=== PATIENT | female | born 1980 | race Caucasian/White ===

== ENCOUNTER 2018-04-02 11:01 | Day surgery (SDC) | payer BC ==
[2018-04-01 11:16] LABS: BASOPHILS % (AUTO) 0.3 % (0-1); EOSINOPHILS # (AUTO) 0.1 X10'3 (0-0.9); EOSINOPHILS % (AUTO) 1.2 % (0-6); LYMPHOCYTES # (AUTO) 1.8 X10'3 (1.1-4.8); LYMPHOCYTES % (AUTO) 28.6 % (21-51); MEAN CORPUSCULAR HEMOGLOBIN 28.6 PG (27.0-31.0); MEAN CORPUSCULAR HGB CONC 32.3 % (33.0-36.5); MEAN CORPUSCULAR VOLUME 88.6 FL (78-98); MEAN PLATELET VOLUME 8.8 FL (7.4-10.4); MONOCYTES # (AUTO) 0.4 X10'3 (0-0.9); MONOCYTES % (AUTO) 6.1 % (2-12); NEUTROPHILS % (AUTO) 63.8 % (42-75); PRE OP HEMATOCRIT 46.8 % (35.0-45.0); PRE OP HEMOGLOBIN 15.1 g/dL (12.0-16.0); PRE OP PLATELET COUNT 273 X10'3 (140-440); RED BLOOD COUNT 5.28 X10'6 (4.20-5.60); RED CELL DISTRIBUTION WIDTH 12.7 % (11.5-14.5)
[2018-04-01 11:33] LABS: BLOOD UREA NITROGEN 21 MG/DL (7-18); BUN/CREATININE RATIO 24.7 (6.6-38.0); CALCIUM 9.2 MG/DL (8.5-10.1); CHLORIDE 102 MMOL/L (99-107); CREATININE 0.85 MG/DL (0.40-0.90); PRE OP ANION GAP 12 (8-16); PRE OP BILIRUB, TOTAL 0.3 MG/DL (0.0-1.0); PRE OP GLUCOSE 98 MG/DL (70-104); PRE OP SODIUM 139 MMOL/L (135-145); TOTAL CARBON DIOXIDE 25.3 MMOL/L (24-32); TOTAL PROTEIN 7.9 G/DL (6.4-8.2); eGFR 74 ML/MIN
[2018-04-01 11:34] LABS: ALBUMIN 4.1 G/DL (3.4-5.0); ALBUMIN/GLOBULIN RATIO 1.1 (1.1-1.5); ALKALINE PHOSPHATASE 96 IU/L (46-116); PRE OP ALT 53 U/L (30-65); PRE OP AST 24 U/L (10-37)
[2018-04-02] VITALS (7 sets, daily range): BP systolic 115–137; BP diastolic 72–91
[~2018-04-02] VITALS: Ht 172.7 cm; Wt 130.2 kg
[~2018-04-02 11:01] MED LIST: ANAS1TAB49 PO; CALC-995; CHOL100044 PO; DENO60DI; ESZO3TAB32 PO; [UNRECOGNIZED DRUG - OTHER]; cefazolin/dext.iso 2gm/50ml 50 ML IV ONE; famotidine 20mg tablet PO ONE; ringers solution, lacted 1,000 ML IV SCH
[2018-04-02] MEDS ORDERED: BUPIVAcaine/PF 2.5mg/ml (0.25%) 10ml vial ONE (11:36)
[2018-04-02] MEDS ORDERED: scopolamine 1.5mg patch.TD72 TD ONE (11:55)
[2018-04-02] MEDS ORDERED: sevoflurane 250ml liquid IH ONE (11:56)
[2018-04-02] MEDS ORDERED: fentaNYL/PF 50MCG/1 ML 2ML syringe ONE (12:04)
[2018-04-02] MEDS ORDERED: midazolam 2 mg/2 ml injection ONE (12:05)
[2018-04-02] MEDS ORDERED: propofol inj 20 ML IV ONE (12:08)
[2018-04-02] MEDS ORDERED: ondansetron/PF 4mg/2ml inj ONE (12:36)
[2018-04-02] MEDS ORDERED: dexamethasone sod phosphate 4mg/ml inj. ONE (12:36)
[2018-04-02] MEDS ORDERED: ringers solution, lacted 1,000 ML IV SCH (12:42)
[2018-04-02] MEDS ORDERED: ondansetron/PF 4mg/2ml inj IV PRN (12:45)
[2018-04-02] MEDS ORDERED: proCHLORperazine 10 MG/2 ml inj IV PRN (12:45)
[2018-04-02] MEDS ORDERED: morphine 4 MG/ML inj SYRINge IV PRN ×2 (12:45)
[2018-04-02] MEDS ORDERED: meperidine/PF 25mg/ml syringe IV PRN ×3 (12:45)
--- NOTE | 2018-04-02 12:58 | NUR ---
Received from OR via [facility] , accompanied by Anesthesiologist VIK and report given by Anesthesiolgist. PATIENT WITH 20G PIV IN RIGHT UE RUNNING LR AT 100. PAIN OF 4 TO LEFT INDEX FINGER. OSEAS WRAP AND SPLINT INTACT WITH NO DRAINAGE PRESENT. + SENSATION AT THIS TIME. 10L MASK ON WITH 100% SATURATIONS. Addendum: 04/02/18 at 1313 by Bandar Noriega RN, RN Amended: Links added.
== END 2018-04-02 13:48 | disposition home or self-care (01) ==
LOC: PAS 11:01
PROVIDERS: ATTEND Orthopaedic Surgery Hand Surgery
DX: S66.121A Laceration of flexor muscle, fascia and tendon of left index finger at wrist and hand level, initial encounter (principal); S64.491A Injury of digital nerve of left index finger, initial encounter; S64.22XA Injury of radial nerve at wrist and hand level of left arm, initial encounter; E66.01 Morbid (severe) obesity due to excess calories; M19.90 Unspecified osteoarthritis, unspecified site; F32.9 Major depressive disorder, single episode, unspecified; Z88.1 Allergy status to other antibiotic agents; Z68.41 Body mass index [BMI] 40.0-44.9, adult; Z85.3 Personal history of malignant neoplasm of breast; Z90.13 Acquired absence of bilateral breasts and nipples; Z92.21 Personal history of antineoplastic chemotherapy; Z79.891 Long term (current) use of opiate analgesic; Z79.899 Other long term (current) drug therapy; Z98.890 Other specified postprocedural states; X78.8XXA Intentional self-harm by other sharp object, initial encounter; Y93.89 Activity, other specified; Y92.89 Other specified places as the place of occurrence of the external cause; Y99.8 Other external cause status; Z82.49 Family history of ischemic heart disease and other diseases of the circulatory system; Z83.3 Family history of diabetes mellitus; Z81.8 Family history of other mental and behavioral disorders; Z80.9 Family history of malignant neoplasm, unspecified; Z83.6 Family history of other diseases of the respiratory system
CPT/HCPCS: 26356; 36415; 64704; 80053; 85025; A6222; A6449; J0690; J1100; J2250; J2405; J2704; J3010; J3490; A7000; J7120

== ENCOUNTER 2023-06-10 07:56 | Outpatient (CLI) | payer BC ==
[~2023-06-10] VITALS: Ht 172.7 cm; Wt 127.0 kg
[2023-06-10] VITALS (17 sets, daily range): BP systolic 101–151; BP diastolic 64–92; PULSE 76–108; RESP 14–16; O2SAT 100
[~2023-06-10 07:56] MED LIST changes: -cefazolin/dext.iso 2gm/50ml 50 ML IV ONE; -famotidine 20mg tablet PO ONE; -ringers solution, lacted 1,000 ML IV SCH
[2023-06-10] MEDS ORDERED: nitroGLYCERIN 0.4mg SUBLingual tab SL PRN (08:40)
[2023-06-10] MEDS: aminophylline 250mg/10ml inj. IV PRN (10:19)
[2023-06-10] MEDS: regadenoson 0.4mg/5ml syringe IV ONE (10:19)
== END 2023-06-10 23:59 | disposition home or self-care (01) ==
LOC: RAD 07:56
PROVIDERS: ATTEND Internal Medicine Interventional Cardiology
DX: I50.22 Chronic systolic (congestive) heart failure (principal)
CPT/HCPCS: 78452; 93017; A9500; J0280; J2785

== ENCOUNTER 2023-11-05 13:25 | Outpatient (CLI) | payer OTHER | END 2023-11-05 23:59 | disposition home or self-care (01) | LOC: MRI 13:25 | PROVIDERS: ATTEND Student in an Organized Health Care Education/Training Program | DX: S93.492A Sprain of other ligament of left ankle, initial encounter (principal); M25.572 Pain in left ankle and joints of left foot; T14.8XXA Other injury of unspecified body region, initial encounter; M25.472 Effusion, left ankle; X58.XXXA Exposure to other specified factors, initial encounter; Y93.89 Activity, other specified; Y92.89 Other specified places as the place of occurrence of the external cause; Y99.8 Other external cause status | CPT/HCPCS: 73721 ==

== ENCOUNTER 2024-01-28 10:30 | Day surgery (SDC) | payer OTHER ==
[2024-01-21 11:17] LABS: BASOPHILS % (AUTO) 0.7 % (0-1); BILIRUBIN,URINE NEGATIVE (Neg); CLARITY,URINE CLEAR (Clear); COLOR,URINE YELLOW (Yellow); EOSINOPHILS # (AUTO) 0.1 X10'3 (0-0.9); EOSINOPHILS % (AUTO) 0.9 % (0-6); GLUCOSE, URINE >=1000 mg/dl (Neg); KETONES,URINE NEGATIVE (Neg); LEUKOCYTE ESTERASE ,URINE NEGATIVE (Neg); LYMPHOCYTES % (AUTO) 29.5 % (21-51); MEAN CORPUSCULAR HEMOGLOBIN 29.4 PG (27.0-31.0); MEAN CORPUSCULAR HGB CONC 32.6 g/dL (33.0-36.5); MEAN PLATELET VOLUME 8.8 FL (7.4-10.4); MONOCYTES # (AUTO) 0.3 X10'3 (0-0.9); MONOCYTES % (AUTO) 5.1 % (2-12); NEUTROPHILS # (AUTO) 4.2 X10'3 (1.8-7.7); NEUTROPHILS % (AUTO) 63.8 % (42-75); NITRITES, URINE NEGATIVE (Neg); OCCULT BLOOD,URINE NEGATIVE (Neg); PRE OP HEMATOCRIT 44.3 % (35.0-45.0); PRE OP HEMOGLOBIN 14.4 g/dL (12.0-16.0); PRE OP PLATELET COUNT 226 X10'3 (140-440); PRE OP WHITE BLOOD COUNT 6.6 10'3 (4.8-10.8); PROTEIN,URINE NEGATIVE (Neg); RED BLOOD COUNT 4.92 X10'6 (4.20-5.60); RED CELL DISTRIBUTION WIDTH 13.8 % (11.5-14.5); UROBILINOGEN,URINE 0.2 E.U/dL (0.2-1.0)
[2024-01-21 11:26] LABS: MUCUS STRANDS FEW /LPF (Neg); SQUAMOUS EPITHELIAL CELL,UR MODERATE /LPF (FEW); UA COLLECTION TYPE NON-SPECIFIED
[2024-01-21 11:27] LABS: BACTERIA,URINE 1+ /HPF (Neg); RBC,URINE 0-2 /HPF (0-2)
[2024-01-21 11:37] LABS: ALBUMIN/GLOBULIN RATIO 1.2 (1.1-1.5); ALKALINE PHOSPHATASE 100 IU/L (46-116); BLOOD UREA NITROGEN 13 MG/DL (7-18); BUN/CREATININE RATIO 14.8 (10.0-20.0); CALCIUM 9.2 MG/DL (8.5-10.1); CHLORIDE 103 MMOL/L (99-107); CREATININE 0.88 MG/DL (0.40-0.90); PRE OP ALT 27 U/L (30-65); PRE OP ANION GAP 9 (8-16); PRE OP AST 14 U/L (10-37); PRE OP BILIRUB, TOTAL 0.6 MG/DL (0.0-1.0); PRE OP GLUCOSE 100 MG/DL (70-104); PRE OP POTASSIUM 3.5 MMOL/L (3.4-5.1); PRE OP SODIUM 140 MMOL/L (135-145); TOTAL PROTEIN 7.4 G/DL (6.4-8.2); eGFR 69 ML/MIN
[~2024-01-28] VITALS: Ht 172.7 cm; Wt 122.0 kg
[2024-01-28] VITALS (14 sets, daily range): BP systolic 92–116; BP diastolic 47–71; PULSE 64–91; RESP 12–24; TEMP 97.4; O2SAT 90–97
[2024-01-28] MEDS: DOCUMENT DATE & TIME OF BETA-BLOCKER PO ONE (08:00)
[~2024-01-28 10:30] MED LIST changes: -ANAS1TAB49 PO; -CALC-995; +CALC-995 PO; +CARV-50 PO; -DENO60DI; +EMPA10TA PO; -ESZO3TAB32 PO; +FURO-150 PO; +SACU1TAB7 PO; +SPIR25TA5 PO; -[UNRECOGNIZED DRUG - OTHER]
[2024-01-28] MEDS ORDERED: bacitracin 15gm ointment TP ONE ×2 (10:55→12:55)
[2024-01-28] MEDS ORDERED: BUPIVAcaine 2.5mg/ml inj 50ml vial (contains preservative) ONE ×2 (10:55→12:55)
[2024-01-28] MEDS: Cefazolin 3 GM/100ML NS IVPB 100 ML IV ONE (12:41)
[2024-01-28] MEDS: famotidine 20mg tablet PO ONE (12:41)
[2024-01-28] MEDS: ringers solution, lacted 1,000 ML IV SCH (12:42)
[2024-01-28] MEDS ORDERED: MIDAZolam 1 MG/ML 5ML VIAL ONE (13:10)
[2024-01-28] MEDS ORDERED: fentaNYL/PF 50MCG/1 ML 2ML syringe ONE (13:10)
[2024-01-28] MEDS ORDERED: sevoflurane 250ml liquid IH ONE (13:12)
[2024-01-28] MEDS ORDERED: BUPIVAcaine/PF 7.5mg/ml (0.75%) 10ml vial ONE (13:13)
[2024-01-28] MEDS ORDERED: ROPIVAcaine 0.5% (5mg/ml) 30ml vial ONE (13:13)
[2024-01-28] MEDS ORDERED: LIDOcaine 1%/PF 5ML 10 MG/ML VIAL ONE (13:53)
[2024-01-28] MEDS ORDERED: propofol inj 20 ML IV ONE (13:53)
[2024-01-28] MEDS ORDERED: acetaminophen 1,000mg/100ml IV 100 ML IV ONE (14:34)
[2024-01-28] MEDS ORDERED: meperidine/PF 25mg/ml syringe IV PRN ×2 (14:40)
[2024-01-28] MEDS ORDERED: labetalol 20mg/4ml (5mg/ml) syringe IV PRN (14:40)
[2024-01-28] MEDS ORDERED: proCHLORperazine 10 MG/2 ml inj IV PRN (14:40)
[2024-01-28] MEDS ORDERED: ringers solution, lacted 1,000 ML IV SCH (14:40)
[2024-01-28] MEDS ORDERED: enalaprilat dihydrate 2.5mg/2ml vial IV PRN (14:40)
[2024-01-28] MEDS ORDERED: meperidine/PF 50mg/ml syringe ONE (15:44)
[2024-01-28] MEDS: meperidine/PF 25mg/ml syringe IV PRN (17:16)
[2024-01-28] MEDS: ondansetron/PF 4mg/2ml inj IV PRN (17:54)
[2024-01-28] MEDS: HYDROcodone/acetaminophen 10/325mg tab PO ONE (17:54)
== END 2024-01-28 18:32 | disposition home or self-care (01) ==
LOC: PAS 10:30
PROVIDERS: ATTEND Podiatrist Foot & Ankle Surgery
DX: S93.432A Sprain of tibiofibular ligament of left ankle, initial encounter (principal); M25.372 Other instability, left ankle; M19.072 Primary osteoarthritis, left ankle and foot; M25.572 Pain in left ankle and joints of left foot; G89.18 Other acute postprocedural pain; I10 Essential (primary) hypertension; E66.01 Morbid (severe) obesity due to excess calories; I42.9 Cardiomyopathy, unspecified; F32.A Depression, unspecified; Z85.3 Personal history of malignant neoplasm of breast; Z79.82 Long term (current) use of aspirin; Z79.899 Other long term (current) drug therapy; Z79.891 Long term (current) use of opiate analgesic; Z90.13 Acquired absence of bilateral breasts and nipples; Z90.710 Acquired absence of both cervix and uterus; Z96.651 Presence of right artificial knee joint; Z98.890 Other specified postprocedural states; Z68.41 Body mass index [BMI] 40.0-44.9, adult; Z88.1 Allergy status to other antibiotic agents; Z88.5 Allergy status to narcotic agent; Z82.5 Family history of asthma and other chronic lower respiratory diseases; X58.XXXA Exposure to other specified factors, initial encounter; Y93.89 Activity, other specified; Y92.89 Other specified places as the place of occurrence of the external cause; Y99.8 Other external cause status
CPT/HCPCS: 27698; 27829; 29999; 36415; 64445; 64447; 73600; 80053; 81001; 82948; 85025; 87088; 93005; A6222; C1713; J0131; J0690; J1100; J2175; J2250; J2405; J2704; J2795; J3010; J3490; J7050; J7120; Z7506; Z7508; Z7512; 76000; A4618; A6449; A7000

== ENCOUNTER 2024-04-19 08:39 | Outpatient (CLI) | payer OTHER ==
[~2024-04-19 08:39] MED LIST changes: +ALEN70TA80 PO; +ESZO3TAB17 PO; +OSC500T PO
== END 2024-04-19 23:59 | disposition home or self-care (01) ==
LOC: MRI02 08:39
PROVIDERS: ATTEND Student in an Organized Health Care Education/Training Program
DX: M25.461 Effusion, right knee (principal); M25.561 Pain in right knee
CPT/HCPCS: 73721

== ENCOUNTER 2024-08-31 05:35 | Inpatient (IN) | payer OTHER ==
[2024-08-24 10:17] LABS: BILIRUBIN,URINE NEGATIVE (Neg); CLARITY,URINE CLEAR (Clear); COLOR,URINE YELLOW (Yellow); GLUCOSE, URINE >=1000 mg/dl (Neg); KETONES,URINE NEGATIVE (Neg); LEUKOCYTE ESTERASE ,URINE NEGATIVE (Neg); OCCULT BLOOD,URINE TRACE-INTACT (Neg); PROTEIN,URINE NEGATIVE (Neg); UROBILINOGEN,URINE 0.2 E.U/dL (0.2-1.0)
[2024-08-24 10:18] LABS: UA COLLECTION TYPE NON-SPECIFIED
[2024-08-24 10:19] LABS: BASOPHILS % (AUTO) 0.7 % (0-1); EOSINOPHILS % (AUTO) 0.8 % (0-6); LYMPHOCYTES # (AUTO) 1.7 X10'3 (1.1-4.8); LYMPHOCYTES % (AUTO) 31.8 % (21-51); MEAN CORPUSCULAR HEMOGLOBIN 29.5 PG (27.0-31.0); MEAN CORPUSCULAR HGB CONC 33.5 g/dL (33.0-36.5); MEAN CORPUSCULAR VOLUME 88.2 FL (78-98); MEAN PLATELET VOLUME 8.8 FL (7.4-10.4); MONOCYTES # (AUTO) 0.4 X10'3 (0-0.9); MONOCYTES % (AUTO) 7.1 % (2-12); NEUTROPHILS # (AUTO) 3.2 X10'3 (1.8-7.7); NEUTROPHILS % (AUTO) 59.6 % (42-75); PRE OP HEMATOCRIT 42.5 % (35.0-45.0); PRE OP HEMOGLOBIN 14.2 g/dL (12.0-16.0); PRE OP PLATELET COUNT 256 X10'3 (140-440); PRE OP WHITE BLOOD COUNT 5.4 10'3 (4.8-10.8); RED BLOOD COUNT 4.82 X10'6 (4.20-5.60); RED CELL DISTRIBUTION WIDTH 13.4 % (11.5-14.5)
[2024-08-24 10:21] LABS: NITRITES, URINE NEGATIVE (Neg)
[2024-08-24 10:32] LABS: MUCUS STRANDS FEW /LPF (Neg)
[2024-08-24 10:33] LABS: SQUAMOUS EPITHELIAL CELL,UR MODERATE /LPF (FEW)
[2024-08-24 10:35] LABS: BACTERIA,URINE FEW /HPF (Neg); WBC,URINE 0-4 /HPF (0-4)
[2024-08-24 10:39] LABS: ALBUMIN 3.8 G/DL (3.4-5.0); ALBUMIN/GLOBULIN RATIO 1.1 (1.1-1.5); ALKALINE PHOSPHATASE 112 IU/L (46-116); BLOOD UREA NITROGEN 16 MG/DL (7-18); CHLORIDE 105 MMOL/L (99-107); PRE OP ALT 45 U/L (30-65); PRE OP ANION GAP 10 (8-16); PRE OP AST 21 U/L (10-37); PRE OP BILIRUB, TOTAL 0.4 MG/DL (0.0-1.0); PRE OP GLUCOSE 113 MG/DL (70-104); PRE OP SODIUM 141 MMOL/L (135-145); TOTAL CARBON DIOXIDE 26.1 MMOL/L (24-32); TOTAL PROTEIN 7.3 G/DL (6.4-8.2); eGFR 77 ML/MIN
[2024-08-31] VITALS (18 sets, daily range): BP systolic 93–112; BP diastolic 44–72; PULSE 60–77; RESP 11–22; TEMP 97.2–98.4; O2SAT 92–98
[~2024-08-31] VITALS: Ht 172.7 cm; Wt 120.0 kg
[2024-08-31] MEDS: ringers solution, lacted 1,000 ML IV SCH (05:30)
[~2024-08-31 05:35] MED LIST changes: -ALEN70TA80 PO; -CALC-995 PO; -CARV-50 PO; +CARV25TA2 PO; -CHOL100044 PO; -ESZO3TAB17 PO; -OSC500T PO; +SACU1TAB4 PO; -SACU1TAB7 PO
[2024-08-31] MEDS: DOCUMENT DATE & TIME OF BETA-BLOCKER PO ONE (05:52)
[2024-08-31] MEDS: gentamicin inj 160 MG in normal saline 100ml IV soln 100 ML IV ONE (05:53)
[2024-08-31] MEDS: ceFAZolin 2gm/dext,iso 50mL 50 ML IV ONE (05:53)
[2024-08-31] MEDS: famotidine 20mg tablet PO ONE (06:31)
[2024-08-31] MEDS: CEFAZOLIN 3GM/DEXTROSE 150mL 150 ML IV SCH (06:31)
[2024-08-31] MEDS: VANCOMYCIN/H2O 1.5g/300mL PB 300 ML IV ONE (06:31)
[2024-08-31] MEDS ORDERED: bacitracin 15gm ointment TP ONE (06:40)
[2024-08-31] MEDS ORDERED: BUPIVAcaine 2.5mg/ml inj 50ml vial (contains preservative) ONE (06:40)
[2024-08-31] MEDS ORDERED: fentaNYL/PF 50MCG/1 ML 2ML syringe ONE (07:12)
[2024-08-31] MEDS ORDERED: MIDAZolam 1 MG/ML 5ML VIAL ONE (07:12)
[2024-08-31] MEDS ORDERED: cloNIDine hcl/PF 100mcg/ml inj ONE (07:13)
[2024-08-31] MEDS ORDERED: sevoflurane 250ml liquid IH ONE (07:15)
[2024-08-31] MEDS ORDERED: ondansetron/PF 4mg/2ml inj ONE (07:56)
[2024-08-31] MEDS ORDERED: propofol inj 20 ML IV ONE ×2 (07:56→08:00)
[2024-08-31] MEDS ORDERED: ROPIVAcaine 0.5% (5mg/ml) 30ml vial ONE (07:56)
[2024-08-31] MEDS ORDERED: LIDOcaine 1%/PF 5ML 10 MG/ML VIAL ONE (07:56)
[2024-08-31] MEDS ORDERED: BUPIVAcaine/PF 7.5mg/ml (0.75%) 10ml vial ONE (07:56)
[2024-08-31] MEDS ORDERED: 0.9 % SODIUM CHLORIDE 10 ML VIAL ONE (07:56)
[2024-08-31] MEDS ORDERED: dexamethasone sod phosphate 4mg/ml inj. ONE (07:56)
[2024-08-31] MEDS: BUPIVAcaine/PF 2.5 mg/ml (0.25%) 30ml vial IJ ONE (08:37)
[2024-08-31] MEDS ORDERED: labetalol 20mg/4ml (5mg/ml) syringe IV PRN (08:50)
[2024-08-31] MEDS ORDERED: proCHLORperazine 10 MG/2 ml inj IV PRN (08:50)
[2024-08-31] MEDS ORDERED: enalaprilat 1.25mg/ml 2ml vial IV PRN (08:50)
[2024-08-31] MEDS ORDERED: ondansetron/PF 4mg/2ml inj IV PRN (08:50)
[2024-08-31] MEDS ORDERED: meperidine/PF 25mg/ml syringe IV PRN ×3 (08:50)
[2024-08-31] MEDS ORDERED: ringers solution, lacted 1,000 ML IV SCH (08:50)
--- NOTE | 2024-08-31 08:52 | ANESTHESIA RECORDS ---
Nerve Block Providers to CC ~ Diagnosis: Nerve Block requested by: TRISH CALLAHAN DPRomana Neuraxial/Peripheral Nerve Block requested for Post-operative analgesia by Physician above DIAGNOSIS: Post-operative pain. (Body Area) Shoulder: [ ] Arm: [ ] Hand: [ ] Hip: [ ] Knee: [ ] Ankle: [____Right ] Foot: [ Right ] Leg: [ ] Abdomen: [ ] Other: [ ] Post-operative pain expected to be/is inadequately managed by oral or IV medicines. Regional anesthetic expected to facilitate rehabilitation and/or discharge from facility. Other:[____ ] Procedure Performed: Femoral / Saphenous: Right Popliteal Lateral: Right Time out Done?: Yes Time of Time out: 07:22 Procedure Details: PROCEDURE DETAILS: Risks, benefits and alternatives explained Informed consent obtained, and patient wishes to proceed Conscious sedation with indicated monitors Patient positioned, pertinent anatomy defined, sterile technique used Needle used: [ ] 3 1/8 inch Stimuplex Ultra 22ga [x ] 4 inch Stimuplex Ultra 20ga [ ] 6 inch Stimuplex Ultra 20ga [ ] 6 inch, Quikbloc over the needle catheter set 20ga [ ] 4 inch Quikbloc over the needle catheter set 20ga [ ]Other: [ ] Loss of twitch @ [ 0.5 ]mA [x ] Single Injection [ ] Catheter Ultrasound Guidance Used: [x ] Yes [ ] No Attempts:[ once ] Medicines injected: [x ]Clonidine Amt:[ 80 mcgs ] [x ]Dexamethasone Amt:[___5 mgs ] [x ]Ropivacaine Amt:[ 0.5% 30 cc ] [ x ]Bupivacaine Amt:[ 0.25% 20 cc ] [ ]Lidocaine Amt:[ ] [ ]Exparel 1.33%:[ ] [ ]Epinephrine Amt[ ] [ ]Other: [ ] Intermittent aspiration during local anesthetic administration No symptoms of intraneural or intravenous injection Patient tolerated procedure well Comments Right Politeal fossa Block Pt in Lt lateral position with Left Leg flexed at 90 Degrees. Lateral approach. Ultrasound probe placed back of thigh 2 inches above the knee joint. Easy visualization of the Sciatic nerve. 1% xylocaine local anesthetic. Easy visualization of Spreading of local anesthetic anterior and posterior to the Sciatic nerve sub paraneurally inside sciatic nerve sheath. Meaningful conversation t throughout. No Pain or discomfort during injection. Rt Adductor Canal blk Procedure done before surgery under General anesthesia. Pt supine with Rt leg rotated to Rt slightly. Easy visualization of Adductor Canal with ultra sound anterolateral to Femoral artery at the junction of upper and middle third of thigh. Able to see the tip of the needle and injected local anesthetic with the ultrasound. JJ ROJAS MD Aug 31, 2024 08:52
[2024-08-31] MEDS: bacitracin 15gm ointment TP ONE (09:58)
[2024-08-31] MEDS ORDERED: magnesium Cl slow-release 64mg tablet PO PRN (10:10)
[2024-08-31] MEDS ORDERED: magnesium sulf-water 2g/50mL 50 ML IV PRN (10:10)
[2024-08-31] MEDS ORDERED: magnesium hydroxide 30ml (MOM) UD suspension PO PRN (10:10)
[2024-08-31] MEDS ORDERED: potassium Cl 20 mEq SR tablet PO PRN ×2 (10:10)
[2024-08-31] MEDS ORDERED: morphine 2 MG/ML inj. syringe IV PRN ×2 (10:10)
[2024-08-31] MEDS ORDERED: acetaminophen 325mg tablet PO PRN (10:10)
[2024-08-31] MEDS ORDERED: magnesium sulf-water 4G/100mL 100 ML IV PRN (10:10)
[2024-08-31] MEDS ORDERED: potassium Cl 40MEQ/1/2NS 520ml 520 ML IV PRN (10:10)
[2024-08-31] MEDS ORDERED: mag hydrox/Alum hydrox/simeth 30ml oral suspension PO PRN (10:10)
[2024-08-31] MEDS: HYDROmorphone/PF 0.2 MG/ML SYRINGE IV PRN (13:17)
[2024-08-31] MEDS ORDERED: acetaminophen 1000 MG/100ml vial IV ONE (15:00)
[2024-08-31] MEDS: HYDROcodone/acetaminophen 10/325mg tab PO PRN (16:02)
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
[2024-08-31] MEDS: VANCOMYCIN/H2O 1.5g/300mL PB 300 ML IV SCH (20:13)
[2024-08-31] MEDS: docusate sod 100mg capsule PO SCH (20:13)
[2024-08-31] MEDS: carVEDilol 12.5mg tablet PO SCH (20:13)
[2024-09-01] VITALS (8 sets, daily range): BP systolic 94–117; BP diastolic 44–61; PULSE 64–75; RESP 13–18; TEMP 97.7–98.3; O2SAT 94–98
[2024-09-01 08:42] LABS: BASOPHILS % (AUTO) 0.1 % (0-1); EOSINOPHILS % (AUTO) 0.1 % (0-6); HEMATOCRIT 37.3 % (35.0-45.0); HEMOGLOBIN 12.4 g/dl (12.0-16.0); LYMPHOCYTES # (AUTO) 1.7 X10'3 (1.1-4.8); LYMPHOCYTES % (AUTO) 13.3 % (21-51); MEAN CORPUSCULAR HEMOGLOBIN 29.6 PG (27.0-31.0); MEAN CORPUSCULAR HGB CONC 33.1 g/dL (33.0-36.5); MEAN CORPUSCULAR VOLUME 89.3 FL (78-98); MEAN PLATELET VOLUME 8.9 FL (7.4-10.4); MONOCYTES # (AUTO) 0.7 X10'3 (0-0.9); MONOCYTES % (AUTO) 5.6 % (2-12); NEUTROPHILS # (AUTO) 10.2 X10'3 (1.8-7.7); NEUTROPHILS % (AUTO) 80.9 % (42-75); PLATELET COUNT 212 X10'3 (140-440); RED BLOOD COUNT 4.18 X10'6 (4.20-5.60); WHITE BLOOD COUNT 12.6 X10'3 (4.5-11.0)
[2024-09-01 09:09] LABS: ALANINE AMINOTRANSFERASE 20 U/L (12-78); ALBUMIN 3.3 G/DL (3.4-5.0); ALBUMIN/GLOBULIN RATIO 1.1 (1.1-1.5); ALKALINE PHOSPHATASE 90 IU/L (46-116); ANION GAP 10 (8-16); ASPARTATE AMINO TRANSFERASE 17 U/L (10-37); BILIRUBIN,TOTAL 0.4 MG/DL (0.1-1.0); BLOOD UREA NITROGEN 13 MG/DL (7-18); BUN/CREATININE RATIO 18.6 (10.0-20.0); CALCIUM 8.3 MG/DL (8.5-10.1); CHLORIDE 108 MMOL/L (99-107); CHOL/HDL RATIO 3.5 (0.00-4.99); CHOLESTEROL 184 MG/DL (0-200); GLUCOSE 112 MG/DL (70-104); HDL CHOLESTEROL 53 MG/DL (35-60); LDL CHOLESTEROL 104 MG/DL (50-100); MAGNESIUM 2.2 MG/DL (1.5-2.4); POTASSIUM 3.8 MMOL/L (3.5-5.1); PRO BRAIN NATRIURETIC PEPTIDE 466 PG/ML (0-125); SODIUM 143 MMOL/L (135-145); TOTAL CARBON DIOXIDE 24.9 MMOL/L (24-32); TOTAL PROTEIN 6.3 G/DL (6.4-8.2); TRIGLYCERIDES 93 MG/DL (20-135); eCRCL 101 ML/MIN; eGFR 90 ML/MIN
[2024-09-01] MEDS: HYDROmorphone inj. 0.5 MG/0.5 ML DISP.SYRIN IV PRN ×2 (09:35→13:56)
[2024-09-01] MEDS: EMPAGLIFLOZIN 10 MG TABLET PO SCH (09:36)
[2024-09-01] MEDS: heparin, porcine 5000 units/ml vial SQ SCH (09:38)
[2024-09-01 10:04] LABS: HEMOGLOBIN A1C 5.8 % (4.5-6.2)
--- NOTE | 2024-09-01 10:29 | PROGRESS NOTE ---
Progress Note Ortho Ortho Post Op Day #: 1 ROS ROS No new complaints Exam Exam: Alert and Oreinted x4 Exam Comments RLE: Splint and dressings are D/C/I, no sings of infection or DVT. Calf is supple. Cont RLE NWB Problem/Assessment/Plan Additional Plan 44F 1d S/p R ankle total replacement revision, No concern for infection or DVT. Pt doing well. Pain block wore off. Has not worked with PT yet. Rest of care per Primary, thank you medicine. - NWB RLE - To work with PT - Dressings D/C/I - To f/u with Dr Josue in [address] Josue. Results/Orders Result Diagram: 09/01/24 0732 09/01/24 0700 IZZY DELATORRE DPM Sep 01, 2024 10:29
[2024-09-01] MEDS ORDERED: HYDROmorphone/PF 0.2 MG/ML SYRINGE IV PRN (11:15)
[2024-09-01] MEDS ORDERED: HYDROmorphone inj. 0.5 MG/0.5 ML DISP.SYRIN IM ONE (11:50)
[2024-09-01] MEDS: spironolactone 25 MG tablet PO SCH (12:09)
[2024-09-01] MEDS: HYDROmorphone inj. 0.5 MG/0.5 ML DISP.SYRIN IV ONE (12:10)
--- NOTE | 2024-09-01 12:16 | PROGRESS NOTE- Residence ---
Progress Note - Resident Providers to CC Resident Creating Document: TAINA GILMORE, RES ~ Antibiotic Timeout Antibiotic Ordered?: Yes Subjective The patient was seen and examined at bedside today. She does not have any complaint except for pain in her right leg. Pain medications adjusted. Patient frequently asking for more and more pain medication Objective Vital Signs Date Time Temp Pulse Resp B/P (MAP) Pulse Ox O2 Delivery O2 Flow Rate FiO2 09/01/24 12:09 71 09/01/24 06:00 98.3 13 103/57 (72) 96 Room Air 08/31/24 15:33 2.0 Result Diagram: 09/01/24 0732 09/01/24 0700 Adult female, alert and oriented x4, not in acute distress Head: Normocephalic with an atraumatic Eyes: Pupils- 3mm, reacting to light, conjunctiva- anicteric Nose and throat: No polyps, septum- normal, no mucosal ulcers Neck: Supple, no lymphadenopathy, no carotid bruit Respiratory: No use of accessory muscles of respiration, Bilateral normal vesiscular breath sounds heard. No wheeze, rhochi or creps Cardiac: S1-S2 heard, rhythm regular, no gallop/murmur Abdomen: non distended, no tenderness, no organomegaly, bowel sounds - heard Extremities: Right leg swollen, tender and covered in crepe bandage and surgical bandage Skin: warm and dry, no rash, no purpura Neuro: No focal deficit, gross cranial nerve exam - normal Assessment Assessment A 44-year-old female with past medical history of BRCA2 breast cancer and toxin induced cardiomyopathy admitted into the hospital for ankle reconstruction surgery by Dr. Josue. Hospitalist consulted. Plan Plan Right foot/ankle instability S/p revision with implant arthroplasty (POD 1) Dr. Josue is primarily managing the patient. Patient is on IV vancomycin and cefazolin. Pain management - [place] and Dilaudid. Continue management as per Dr. Josue. PT evaluation pending. History of BRCA2 breast cancer S/p chemo radiotherapy and surgeries Continue outpatient follow up. Herceptin induced cardiomyopathy Continue follow up with Dr. Armenta in outpatient setting. Continue carvedilol 25 mg twice daily, Jardiance 10 mg daily, Entresto, spironolactone 25 mg daily. Code Status: Full code DVT Prophylaxis: Heparin subQ Analgesia/Sedation: [place], morphine, Dilaudid Lines/Tubes: PIV Nutrition: Regular diet PT: Nonweightbearing as per orthopedic surgery Disposition: Continue care in ortho floor. Management as per Dr. Josue. Taina Gilmore MD Internal Medicine Resident PGY-1 Date of Service: Sep 01, 2024 Billing Provider: SHAHRZAD SPENCER MD Common Visit Codes: [id number] INP/OBS CARE(HIGH) TAINA GILMORE, RES Sep 01, 2024 12:16 SHAHRZAD SPENCER MD Sep 01, 2024 19:01
[2024-09-01] MEDS: ondansetron/PF 4mg/2ml inj IV PRN (12:21)
[2024-09-01] MEDS: normal saline 1000ml 1,000 ML IV SCH (18:30)
[2024-09-01] MEDS ORDERED: naloxone 0.4 mg/ml inj IV PRN (18:40)
[2024-09-01] MEDS ORDERED: HYDROmorphone inj. 0.5 MG/0.5 ML DISP.SYRIN IV PRN (18:49)
[2024-09-01] MEDS: gabapentin 300mg capsule PO PRN (19:17)
[2024-09-01] MEDS: cyclobenzaprine 10mg tablet PO PRN (19:17)
[2024-09-01] MEDS: HYDROmorphone 1 mg/ml syringe IV PRN (20:50)
[2024-09-01] MEDS: Melatonin 3mg tablet PO PRN (22:15)
[2024-09-02 06:00] VITALS: BP 118/49; PULSE 80; RESP 16; TEMP 98.2; O2SAT 97
[2024-09-02 07:00] VITALS: RESP 16; O2SAT 97
--- NOTE | 2024-09-02 07:05 | PROGRESS NOTE ---
Progress Note Ortho Ortho Post Op Day #: 2 ROS ROS No new complaints Exam Exam: Alert and Oreinted x4 Problem/Assessment/Plan Additional Plan 44F 2d s/p Right TAR revision. Dressings are D/C/I, no sings of DVT or infection. Pt is still in moderate to severe pain, however BP is normalized this morning. will Hold PT. I cut down some of the splint and loosened the splint this morning. If pain does not decrease over the day will consider consulting Anes for potential BATH TESTER placement. - To cont to monitor. Discussed with Dr ram. Results/Orders Result Diagram: 09/01/24 0732 09/01/24 0700 IZZY DELATORRE DPRomana Sep 02, 2024 07:05
[2024-09-02 10:00] VITALS: BP 102/54; PULSE 84; RESP 16; TEMP 98; O2SAT 95
[2024-09-02] MEDS: docusate sod 100mg capsule PO ONE (13:00)
--- NOTE | 2024-09-02 19:38 | DISCHARGE SUMMARY-Residence ---
Discharge Summary Providers to CC Resident Creating Document: ASCENCION CRAWLEY, RES ~ Discharge Summary Admission Diagnosis: s/p revision TAR right ankle Hospital Course DATE OF ADMISSION: 08/31/2024 DATE OF DISCHARGE: 09/02/2024 Discharge Diagnosis\Comment: Right foot/ankle instability S/p revision with implant arthroplasty History of BRCA2 breast cancer S/p chemo radiotherapy and surgeries Herceptin induced cardiomyopathy Operations\Procedures: Revision with implant arthroplasty of right ankle Consultants: Dr. Josue Complications: None Condition on DC: Stable Continued Medications: Carvedilol (Carvedilol) 25 Mg Tablet 1 TAB PO Q12H, TAB 0 Refills Empagliflozin (Jardiance) 10 Mg Tablet 1 TAB PO DAILY, TAB 0 Refills Furosemide (Lasix) 20 Mg Tablet 1 TAB PO PRN PRN for EDEMA, TAB 0 Refills Sacubitril/Valsartan (Entresto 97 mg-103 mg Tablet) 97 Mg-103 Mg Tablet 1 TAB PO Q12H, TAB 0 Refills Spironolactone (Spironolactone) 25 Mg Tablet 1 TAB PO DAILY, TAB 0 Refills Discharge Summary: History of present illness: The patient is a 44-year-old female with past medical history of BRCA 2 breast cancer s/p chemoradiotherapy and surgeries, toxic cardiomyopathy, admitted into the hospital for ankle reconstruction by Dr. Josue. The patient broke her right ankle in 2020 and underwent an ankle reconstruction and later on underwent multiple reconstruction surgeries including debridement and total ankle replacement. The replacement got unstable and she underwent revision with total arthroplasty this morning. The patient denies fevers, cough, difficulty breathing, chest pain, palpitations, nausea, vomiting, diarrhea, constipation, abdominal pain, burning micturition. She reports intentional weight loss. Patient has a history of BRCA2 breast cancer for which she underwent multiple surgeries, 48 rounds of radiotherapy, and chemotherapy. 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 Hospital course Right foot/ankle instability. S/p revision with implant arthroplasty. Dr. Josue is primarily managing the patient and performed the surgery. Patient is on IV vancomycin and cefazolin. Pain management - [place], morphine and Dilaudid. History of BRCA2 breast cancer. S/p chemo radiotherapy and surgeries. Herceptin induced cardiomyopathy. Continued carvedilol 25 mg twice daily, Jardiance 10 mg daily, Entresto, spironolactone 25 mg daily. DVT prophylaxis with heparin subcutaneous. Vital Signs Date Time Temp Pulse Resp B/P (MAP) Pulse Ox O2 Delivery O2 Flow Rate FiO2 09/02/24 10:00 98.0 84 16 102/54 (70) 95 Room Air 09/02/24 07:00 0.0 09/01/24 08:00 21 Laboratory Tests Test 09/01/24 07:00 09/01/24 07:32 09/02/24 06:01 Sodium Level 143 MMOL/L Potassium Level 3.8 MMOL/L Chloride Level 108 MMOL/L Carbon Dioxide Level 24.9 MMOL/L Anion Gap 10 Blood Urea Nitrogen 13 MG/DL Creatinine 0.70 MG/DL Estimated GFR/1.73 m2 90 ML/MIN BUN/Creatinine Ratio 18.6 Glucose Level 112 MG/DL Hemoglobin A1c 5.8 % Calcium Level 8.3 MG/DL Magnesium Level 2.2 MG/DL 2.0 MG/DL Total Bilirubin 0.4 MG/DL Aspartate Amino Transf (AST/SGOT) 17 U/L Alanine Aminotransferase (ALT/SGPT) 20 U/L Alkaline Phosphatase 90 IU/L Pro-B-Type Natriuretic Peptide 466 PG/ML Total Protein 6.3 G/DL Albumin 3.3 G/DL Globulin 3.0 G/DL Albumin/Globulin Ratio 1.1 Triglycerides Level 93 MG/DL Cholesterol Level 184 MG/DL LDL Cholesterol 104 MG/DL HDL Cholesterol 53 MG/DL Cholesterol/HDL Ratio 3.5 Chemistry Comments White Blood Count 12.6 X10'3 Red Blood Count 4.18 X10'6 Hemoglobin 12.4 g/dl Hematocrit 37.3 % Mean Corpuscular Volume 89.3 FL Mean Corpuscular Hemoglobin 29.6 PG Mean Corpuscular Hemoglobin Concent 33.1 g/dL Red Cell Distribution Width 14.0 % Platelet Count 212 X10'3 Mean Platelet Volume 8.9 FL Neutrophils (%) (Auto) 80.9 % Lymphocytes (%) (Auto) 13.3 % Monocytes (%) (Auto) 5.6 % Eosinophils (%) (Auto) 0.1 % Basophils (%) (Auto) 0.1 % Neutrophils # (Auto) 10.2 X10'3 Lymphocytes # (Auto) 1.7 X10'3 Monocytes # (Auto) 0.7 X10'3 Eosinophils # (Auto) 0.0 X10'3 Basophils # (Auto) 0.0 X10'3 CBC Comment Erythrocyte Sedimentation Rate 10 MM/HR Troponin I High Sensitivity 5 ng/L Procalcitonin < 0.05 NG/ML Physical examination at discharge: Adult female, alert and oriented x4, not in acute distress Head: Normocephalic with an atraumatic Eyes: Pupils- 3mm, reacting to light, conjunctiva- anicteric Nose and throat: No polyps, septum- normal, no mucosal ulcers Neck: Supple, no lymphadenopathy, no carotid bruit Respiratory: No use of accessory muscles of respiration, Bilateral normal vesiscular breath sounds heard. No wheeze, rhochi or creps Cardiac: S1-S2 heard, rhythm regular, no gallop/murmur Abdomen: non distended, no tenderness, no organomegaly, bowel sounds - heard Extremities: Right leg swollen, tender and covered in crepe bandage and surgical bandage Skin: warm and dry, no rash, no purpura Neuro: No focal deficit, gross cranial nerve exam - normal Discharge instructions: Follow up with Dr. Josue in a week. Weight bearing recommendations and pain management per Dr. Josue. Return to the ED if you have worsening pain or discharge from the surgical site. *Problems/Diagnosis: (1) Cardiomyopathy (2) H/O arthroplasty (3) Arthroplasty planned Total Time Spent on D/C: > 30 Minutes Date of Service: Sep 02, 2024 Billing Provider: SELMA HUA MD, DEEPIKA BANDI, RES Sep 02, 2024 19:38
[2024-09-02] MEDS ORDERED: docusate sod 100mg capsule PO SCH (20:00)
== END 2024-09-02 17:03 | disposition home or self-care (01) | DRG 469 ==
LOC: PAS IN 05:35 → EDSTATUS 07:30 → ORTHO 4S 11:11
PROVIDERS: ADMIT Podiatrist Foot & Ankle Surgery; ATTEND Podiatrist Foot & Ankle Surgery
PROC: 0SPF0JZ Removal of Synthetic Substitute from Right Ankle Joint, Open Approach (ICD-10-PCS; 2024-08-31)
PROC: 0JH80VZ Insertion of Infusion Pump into Abdomen Subcutaneous Tissue and Fascia, Open Approach (ICD-10-PCS; 2024-08-31)
PROC: 3E013BZ Introduction of Anesthetic Agent into Subcutaneous Tissue, Percutaneous Approach (ICD-10-PCS; 2024-08-31)
PROC: 0SRF0JZ Replacement of Right Ankle Joint with Synthetic Substitute, Open Approach (ICD-10-PCS; principal; 2024-08-31 07:17)
DX: T84.038A Mechanical loosening of other internal prosthetic joint, initial encounter (principal); I42.7 Cardiomyopathy due to drug and external agent; X58.XXXA Exposure to other specified factors, initial encounter; M25.371 Other instability, right ankle; Y83.8 Other surgical procedures as the cause of abnormal reaction of the patient, or of later complication, without mention of misadventure at the time of the procedure; F32.A Depression, unspecified; Y92.89 Other specified places as the place of occurrence of the external cause; Z85.3 Personal history of malignant neoplasm of breast; Z92.21 Personal history of antineoplastic chemotherapy; Z92.3 Personal history of irradiation; Z88.1 Allergy status to other antibiotic agents; Z88.5 Allergy status to narcotic agent
CPT/HCPCS: Z7506; Z7508; 36415; 73600; 76000; 80053; 80061; 81001; 82948; 83036; 83735; 83880; 84145; 84484; 85025; 85651; 87081; 97116; 97161; A4615; A4618; A6223; A6449; A7000; C1713; C1776; G0378; J0131; J0735; J1100; J1171; J1580; J1644; J2250; J2405; J2704; J2795; J3010; J3370; J3372; J3490; J7030; J7040; J7120